=== PATIENT | male | born 1965 | race Caucasian/White ===

== ENCOUNTER 2017-05-25 15:16 | Emergency (ER) | payer BC ==
[~2017-05-25] VITALS: Ht 198.1 cm; Wt 168.3 kg
[2017-05-25 15:20] VITALS: TEMP 36.7; Ht 198.1 cm; Wt 168.3 kg
[2017-05-25] MEDS ORDERED: ACETAMINOPHEN 325 MG TAB PO STA (15:53)
[2017-05-25] MEDS ORDERED: IBUPROFEN 200 MG TAB PO STA (15:53)
[2017-05-25] MEDS ORDERED: CYCLOBENZAPRINE HCL 10 MG TAB PO STA (15:53)
[2017-05-25] MEDS ORDERED: OPTIRAY 320 IV PRN (16:15)
--- NOTE | 2017-05-25 16:34 | DIAGNOSTIC IMAGING REPORT ---
CHEST ONE VIEW PORTABLE CLINICAL HISTORY: dizziness pain COMPARISON STUDY: No previous studies for comparison. FINDINGS: The bones soft tissues and hemidiaphragms are normal. The cardiomediastinal silhouette is normal. The lungs are clear. The pulmonary vasculature is normal. IMPRESSION: Negative chest. The above report was generated using voice recognition software. It may contain grammatical, syntax or spelling errors. Electronically signed by: Bala Torres M.D. 05/25/2017 4:32 PM Dictated Date/Time: 05/25/2017 4:32 PM
[2017-05-25 17:08] LABS: BUN/CREATININE RATIO 15.4 (10-20); CREATININE 1.3 mg/dl (0.60-1.40); MAGNESIUM 2.1 mg/dl (1.8-2.4); PHOSPHORUS 3.5 mg/dl (2.5-4.9); POTASSIUM 4.1 mmol/L (3.5-5.1)
[2017-05-25 17:18] LABS: BASO % 0.3 %; BASO ABS # 0.02 K/uL (0-0.2); COMPLETE YES; EOS % 1.7 %; HEMATOCRIT 43.5 % (42-52); IG% 0.3 %; LYMPH % 28.3 %; LYMPH ABS # 2.04 K/uL (1.2-3.4); MEAN CELL VOLUME 90.8 fL (80-100); MEAN CORPUSCULAR HEMOGLOBIN 31.9 pg (25-34); MEAN CORPUSCULAR HGB CONC 35.2 g/dl (32-36); MEAN PLATELET VOLUME 11.1 fL (7.4-10.4); MONO % 9.6 %; NEUT % 59.8 %; PLATELET COUNT 178 K/uL (130-400); RED BLOOD COUNT 4.79 M/uL (4.7-6.1); WHITE BLOOD COUNT 7.21 K/uL (4.8-10.8)
--- NOTE | 2017-05-25 18:09 | DIAGNOSTIC IMAGING REPORT ---
HEAD WITHOUT CONTRAST (CT) CT DOSE: 1636.56 mGy.cm HISTORY: Mental status change dizziness TECHNIQUE: Multiaxial CT images of the head were performed without the use of intravenous contrast. A dose lowering technique was utilized adhering to the principles of ALARA. Comparison: None. Findings: The paranasal sinuses and mastoid air cells are clear. The calvarium and skull base are intact. The ventricles and sulci are within normal limits. There is no mass, hematoma, midline shift, or acute infarct. Impression: No acute intracranial abnormality. The above report was generated using voice recognition software. It may contain grammatical, syntax or spelling errors. Electronically signed by: Bala Torres M.D. 05/25/2017 6:08 PM Dictated Date/Time: 05/25/2017 6:08 PM
--- NOTE | 2017-05-25 18:12 | DIAGNOSTIC IMAGING REPORT ---
HEAD ANGIO WITH CONTRAST CLINICAL HISTORY: Mental status change headaches TECHNIQUE: Transaxial acquisition. Multi axial reformatted images. COMPARISON STUDY: None FINDINGS: All major intracranial vessels are unremarkable. All major structures the anterior middle and posterior cerebral circulation are unremarkable. IMPRESSION: Negative study The above report was generated using voice recognition software. It may contain grammatical, syntax or spelling errors. Electronically signed by: Bala Torres M.D. 05/25/2017 6:10 PM Dictated Date/Time: 05/25/2017 6:08 PM
--- NOTE | 2017-05-25 18:14 | DIAGNOSTIC IMAGING REPORT ---
CT NECK ANGIO WITH CONTRAST CLINICAL HISTORY: Headache, dizziness. Possible carotid stenosis. COMPARISON STUDY: No previous studies for comparison. TECHNIQUE: CT angiography was performed from the aortic arch to the skull base. MIP imaging was performed. The patient was scanned in a dynamic helical fashion during intravenous administration of 115 cc of Optiray 320. A dose lowering technique was utilized adhering to the principles of ALARA. CT DOSE: Technique: CT angiogram of the carotid and vertebral arteries was obtained using intravenous contrast and 3-D reconstruction. NASCET criteria was utilized. Findings: The right carotid revealed no evidence of aneurysm and no evidence of dissection. There is no evidence of hemodynamic significant stenosis. The left carotid revealed no evidence of hemodynamic significant stenosis. There is no evidence of aneurysm. There is no evidence of dissection. There is no evidence of hemodynamically significant vertebral stenosis. There is no evidence of vertebral dissection. IMPRESSION: No evidence of hemodynamically significant carotid or vertebral artery stenosis. No evidence of dissection. Electronically signed by: Wilberto Jerome M.D. 05/25/2017 6:12 PM Dictated Date/Time: 05/25/2017 6:09 PM
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
[2017-05-25 19:00] VITALS: BP 129/76; PULSE 71; O2SAT 96
== END 2017-05-25 19:13 | disposition home or self-care (01) ==
LOC: C.EDB 15:19 → C.EDC 19:13
DX: R42 Dizziness and giddiness (principal); Z98.890 Other specified postprocedural states; Z87.891 Personal history of nicotine dependence